=== PATIENT | female | born 1985 | race Caucasian/White ===

== ENCOUNTER 2018-07-16 19:23 | Emergency (ER) | payer OTHER ==
[~2018-07-16] VITALS: Ht 160 cm; Wt 81.7 kg
[2018-07-16] MEDS ORDERED: TYLENOL EXTRA500 MG PO (19:46)
[2018-07-16] MEDS ORDERED: NORCO 10-325 T1 EACH PO (20:26)
[2018-07-16] MEDS ORDERED: PENICILLIN V P500 MG PO (20:26)
[2018-07-16 20:50] VITALS: BP 145/93
== END 2018-07-16 20:50 | disposition home or self-care (01) ==
LOC: ER 19:23
DX: K04.7 Periapical abscess without sinus (principal); R51 Headache; F17.210 Nicotine dependence, cigarettes, uncomplicated

== ENCOUNTER 2018-07-17 19:40 | Emergency (ER) | payer OTHER ==
[~2018-07-17] VITALS: Ht 160 cm; Wt 81.7 kg
[~2018-07-17 19:40] MED LIST: NORCO 10-325 T1 EACH PO; PENICILLIN V P500 MG PO; TYLENOL EXTRA500 MG PO
[2018-07-17 22:30] VITALS: BP 132/68
== END 2018-07-17 23:00 | disposition home or self-care (01) ==
LOC: ER 19:40
DX: K04.7 Periapical abscess without sinus (principal); F17.210 Nicotine dependence, cigarettes, uncomplicated